=== PATIENT | female | born 1965 | race Caucasian/White ===

== ENCOUNTER 2017-12-10 09:39 | Emergency (ER) | payer OTHER ==
[2017-12-10] MEDS ORDERED: DEXAMETHASONE 10 MG/ML VIAL PO STA (11:41)
--- NOTE | 2017-12-10 11:44 | ED Physician Documentation ---
PD HPI DYSPNEA - Stated complaint Stated Complaint: SOA - Chief complaint Chief Complaint: Resp - History obtained from History obtained from: Patient - History of Present Illness Timing - onset: How many days ago (2) Timing - details: Still present Associated symptoms: Fever, Cough, Other (sore throat) Similar symptoms before: Diagnosis (asthma) - Treatment prior to arrival Treatment prior to arrival: Albuterol inhaler, without relief. - Additional information Additional information: The patient is a 52-year-old female with history of asthma who presents with dyspnea that started 2 days ago and has persisted since that time, despite the use of albuterol inhaler. She reports low-grade fever at night, and reports nonproductive cough. She reports sore throat that started last week, prior to the onset of dyspnea. She has had slight nausea, without vomiting. She denies chest pain. She quit smoking cigarettes in 2009. Review of Systems Constitutional: denies: Fever Nose: denies: Congestion Throat: reports: Sore throat Cardiac: denies: Chest pain / pressure Respiratory: reports: Dyspnea, Cough GI: reports: Nausea. 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 - Present Medications Home Medications: Ambulatory Orders Medication Instructions Recorded Confirmed Cetirizine [ZyrTEC] 10 mg ORAL TID 02/12/14 03/24/15 Estrogens, Conjugated [Premarin] 0.3 mg ORAL DAILY 02/12/14 03/24/15 Fluticasone/Salmeterol 100/50 1 mg INH BID 02/12/14 03/24/15 [Advair 100 Mcg/50 Mcg] Levothyroxine [Synthroid] 112 mcg ORAL DAILY 02/12/14 03/24/15 traMADol [Ultram] 50 mg ORAL TID 02/12/14 03/24/15 Albuterol [Ventolin Hfa] 2 puffs INH Q4H PRN 03/24/15 03/24/15 Azithromycin [Zithromax] 250 mg PO DAILY #6 tablet 03/24/15 Fluticasone/Salmeterol [Advair 1 spray INH BID 03/24/15 03/24/15 100-50 Diskus] Benzonatate [Tessalon Perle] 100 mg PO BID PRN #10 capsule 12/10/17 predniSONE [Prednisone] 30 mg PO DAILY #15 tablet 12/10/17 - Allergies Allergies/Adverse Reactions: Allergies Allergy/AdvReac Type Severity Reaction Status Date / Time acetaminophen [From Percocet] AdvReac Hives Verified 12/10/17 09:54 codeine AdvReac Hives Verified 12/10/17 09:54 hydrocodone bitartrate * AdvReac Hives Verified 12/10/17 09:54 [From Vicodin] oxycodone HCl * AdvReac Hives Verified 12/10/17 09:54 [From Percocet] - Social History Does the pt smoke?: No Smoking Status: Former smoker (Quit in 2009.) Does the pt drink ETOH?: No Does the pt have substance abuse?: No - Immunizations Immunizations are current?: Yes PD ED PE NORMAL - Vitals Vital signs reviewed: Yes (Borderline hypertension.) - General General: Alert and oriented X 3, Well developed/nourished - HEENT HEENT: Atraumatic, Pharynx benign - Neck Neck: No adenopathy, No JVD - Cardiac Cardiac: RRR - Respiratory Respiratory: Other (Without wheezed, rales or rhonchi.) - Abdomen Abdomen: Soft, Non tender - Back Back: No CVA TTP - Derm Derm: No rash - Extremities Extremities: No edema, No calf tenderness / cord - Neuro Neuro: Alert and oriented X 3, No motor deficit, Normal speech Results - Vitals Vitals: Oxygen O2 Source Room air - Labs Labs: Microbiology 12/10/17 10:20 Group A Strep Throat Culture - Final Throat MIXED OROPHARYNGEAL GANGA PRESENT. NO BETA STREP PRESENT IN CULTURE. Laboratory Tests 12/10/17 10:20 Group A Strep Rapid Negative - Rads (name of study) CXR Radiology: Prelim report reviewed, EMP read contemporaneously, See rad report (No acute cardiopulmonary process. Possible COPD.) PD MEDICAL DECISION MAKING - ED course Complexity details: reviewed results, re-evaluated patient, considered differential, d/w patient ED course: The patient's presentation is most consistent with viral bronchitis. Chest x- ray reveals no evidence of pneumonia or congestive heart failure. I doubt pulmonary embolus. Rapid strep screen is negative. Treatment in the emergency department included administration of dexamethasone 10 mg orally. She is being discharged with prescriptions for prednisone and for Tessalon Perles. I discussed with her the expected course of illness, symptomatic treatment and outpatient follow-up, as well as potentially worrisome signs or symptoms that should prompt reevaluation in the emergency department. - Sepsis Event Vital Signs: Oxygen O2 Source Room air Departure - Departure Disposition: Home, Self Care Clinical Impression: Bronchitis Condition: Stable Instructions: ED Bronchitis Asthmatic Follow-Up: PADILLA GOTTI PA-C [Primary Care Provider] - Prescriptions: Benzonatate [Tessalon Perle] 100 mg PO BID PRN #10 capsule PRN Reason: Cough predniSONE [Prednisone] 30 mg PO DAILY #15 tablet Comments: Continue using Tylenol or ibuprofen as needed for fever or discomfort. Take prednisone daily as prescribed. You can use Tessalon as prescribed if needed for cough. Follow-up with your primary physician within 1-2 weeks. Call to schedule appointment. Return to the emergency department if you develop increasing difficulty breathing, or otherwise worsening symptoms. Forms: Activity restrictions Discharge Date/Time: 12/10/17 12:06
[2017-12-10 12:05] VITALS: BP 128/83
--- NOTE | 2017-12-10 12:24 | XRAY Report ---
Reason: cough Procedure Date: 12/10/2017 Accession Number: [id number] / [id number] Procedure: XR - Chest 2 View X-Ray CPT Code: 71722 FULL RESULT: EXAM: CHEST RADIOGRAPHY EXAM DATE: 12/10/2017 10:39 AM. CLINICAL HISTORY: Cough. COMPARISON: CHEST 2 VIEW PA/lateral 03/24/2015 8:21 PM. TECHNIQUE: 2 views. FINDINGS: Lungs/Pleura: Lungs are mildly hyperinflated. No focal opacities. No pneumothorax or effusions. Mediastinum: Heart and mediastinal contours are unremarkable. Other: None. IMPRESSION: 1. No acute pulmonary process. 2. Possible COPD. RADIA
== END 2017-12-10 12:06 | disposition home or self-care (01) ==
LOC: ED 09:39
DX: J40 Bronchitis, not specified as acute or chronic (principal); J44.9 Chronic obstructive pulmonary disease, unspecified; Z87.01 Personal history of pneumonia (recurrent)
CPT/HCPCS: 71046; 87070; 87430; 99282; 99283

== ENCOUNTER 2019-09-19 02:40 | Emergency (ER) | payer OTHER ==
--- NOTE | 2019-09-19 02:58 | ED Physician Documentation ---
PD HPI ABD PAIN - Stated complaint Stated Complaint: ABD PX - Chief complaint Chief Complaint: Abd Pain - History obtained from History obtained from: Patient - History of Present Illness Timing - onset: How many days ago (5) Timing - duration: Days (5) Timing - details: Gradual onset, Still present Quality: Sharp, Pain Location: LUQ, LLQ Radiation: Left flank Improved by: Laying still Worsened by: Moving, Breathing, Position, Palpation Associated symptoms: Nausea. 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 She has had persistence and worsening of the pain over the past 5 days. She has become nauseated she has not had any vomiting and she has not had a fever. She has continued to be able to eat and she has had normal bowel movement and normal urination. Review of Systems Constitutional: denies: Fever Eyes: denies: Decreased vision Ears: denies: Ear pain Nose: denies: Rhinorrhea / runny nose, Congestion Throat: denies: Sore throat Cardiac: denies: Chest pain / pressure Respiratory: denies: Dyspnea, Cough GI: reports: Abdominal Pain, Nausea. 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 - Present Medications Home Medications: Ambulatory Orders Medication Instructions Recorded Confirmed Cetirizine [ZyrTEC] 10 mg ORAL TID 02/12/14 03/24/15 Estrogens, Conjugated [Premarin] 0.3 mg ORAL DAILY 02/12/14 03/24/15 Fluticasone/Salmeterol 100/50 1 mg INH BID 02/12/14 03/24/15 [Advair 100 Mcg/50 Mcg] Levothyroxine [Synthroid] 112 mcg ORAL DAILY 02/12/14 03/24/15 traMADol [Ultram] 50 mg ORAL TID 02/12/14 03/24/15 Albuterol [Ventolin Hfa] 2 puffs INH Q4H PRN 03/24/15 03/24/15 Azithromycin [Zithromax] 250 mg PO DAILY #6 tablet 03/24/15 Fluticasone/Salmeterol [Advair 1 spray INH BID 03/24/15 03/24/15 100-50 Diskus] Benzonatate [Tessalon Perle] 100 mg PO BID PRN #10 capsule 12/10/17 predniSONE [Prednisone] 30 mg PO DAILY #15 tablet 12/10/17 - Allergies Allergies/Adverse Reactions: Allergies Allergy/AdvReac Type Severity Reaction Status Date / Time acetaminophen [From Percocet] AdvReac Hives Verified 12/10/17 09:54 codeine AdvReac Hives Verified 12/10/17 09:54 hydrocodone bitartrate * AdvReac Hives Verified 12/10/17 09:54 [From Vicodin] oxycodone HCl * AdvReac Hives Verified 12/10/17 09:54 [From Percocet] - Social History Does the pt smoke?: No Smoking Status: Never smoker Does the pt drink ETOH?: No Does the pt have substance abuse?: No - Immunizations Immunizations are current?: Yes - POLST Patient has POLST: No PD ED PE NORMAL - Vitals Vital signs reviewed: Yes (normal ) - General General: Alert and oriented X 3, No acute distress, Well developed/nourished - HEENT HEENT: Atraumatic, PERRL, EOMI - Neck Neck: Supple, no meningeal sign, No bony TTP - Cardiac Cardiac: RRR, No murmur - Respiratory Respiratory: No respiratory distress, Other (end inspritory wheeze is present in all pantoja ) - Abdomen Abdomen: Normal bowel sounds, Soft, Non distended, No organomegaly, Other (There is left upper quadrant tenderness and tenderness to bimanual palpation of the left kidney as well as pain to palpation of the left lower quadrant. 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2 Lymph # (Auto) 2.2 Benson # (Auto) 0.6 Eos # (Auto) 1.0 H Baso # (Auto) 0.1 Absolute Nucleated RBC 0.00 Nucleated RBC % 0.0 Sodium 137 Potassium 3.7 Chloride 100 L Carbon Dioxide 29 Anion Gap 8.0 BUN 13 Creatinine 1.0 Estimated GFR (MDRD) 57 L Glucose 103 H Calcium 8.8 Total Bilirubin 0.6 AST 21 ALT 16 Alkaline Phosphatase 67 Total Protein 7.4 Albumin 4.2 Globulin 3.2 Albumin/Globulin Ratio 1.3 Lipase 34 HCG, Quant 1.88 Urine Color Urine Clarity Urine pH Ur Specific [place] Urine Protein Urine Glucose (UA) Urine Ketones Urine Occult Blood Urine Nitrite Urine Bilirubin Urine Urobilinogen Ur Leukocyte Esterase Urine RBC Urine WBC Ur Squamous Epith Cells Urine Bacteria Ur Microscopic Review Urine Culture Comments 09/19/19 03:20 WBC RBC Hgb Hct MCV MCH MCHC RDW Plt Count MPV Neut # (Auto) Lymph # (Auto) Benson # (Auto) Eos # (Auto) Baso # (Auto) Absolute Nucleated RBC Nucleated RBC % Sodium Potassium Chloride Carbon Dioxide Anion Gap BUN Creatinine Estimated GFR (MDRD) Glucose Calcium Total Bilirubin AST ALT Alkaline Phosphatase Total Protein Albumin Globulin Albumin/Globulin Ratio Lipase HCG, Quant Urine Color YELLOW Urine Clarity CLEAR Urine pH 5.5 Ur Specific [place] 1.025 Urine Protein NEGATIVE Urine Glucose (UA) NEGATIVE Urine Ketones NEGATIVE Urine Occult Blood SMALL H Urine Nitrite NEGATIVE Urine Bilirubin NEGATIVE Urine Urobilinogen 0.2 (NORMAL) Ur Leukocyte Esterase NEGATIVE Urine RBC 0-5 Urine WBC 0-3 Ur Squamous Epith Cells FEW Squamous Urine Bacteria None Seen Ur Microscopic Review INDICATED Urine Culture Comments NOT INDICATED - Rads (name of study) CT ab/pel with Radiology: Prelim report reviewed (Impression: Mild to moderate constipation extending from the transverse colon through mid descending colon. Negative for splenomegaly. No signs of recurrent neoplasm.), EMP read indepedently, See rad report PD MEDICAL DECISION MAKING - ED course Complexity details: reviewed old records, reviewed results, re-evaluated patient, considered differential, d/w patient ED course: 54-year-old female with remote history of leukemia has had abdominal pain for the past 5 days worsening and especially up in the left upper quadrant. She has pain and tenderness to palpation. On her CT scan there is excessive stool especially at the splenic flexure. There are no other specific findings in the CT scan and the blood work is unremarkable. She has a normal white blood cell count normal electrolytes and liver functions. There was no evidence of recurrent neoplasm in the abdomen. Here in the emergency department the patient was treated for pain with use of morphine and this did help. When she was confronted with the diagnosis she was relieved and felt that she would be able to handle this at home with enema and laxative and I have encouraged her to use MiraLAX on a regular basis to retrain her colon. She is a daily user of tramadol and this may have been the impetus for the constipation in the first place. Departure - Departure Disposition: 01 Home, Self Care Clinical Impression: Constipation Qualifiers: Constipation type: drug induced constipation Qualified Code(s): K59.03 - Drug induced constipation Instructions: ED Constipation Follow-Up: Anita Langley MD [Primary Care Provider] - Comments: Today there is excessive stool throughout the entire colon and especially in the area where your pain is. My recommendation is to use both a laxative and enema at home today to clear this out. In addition it will be important to retrain her: And the recommendation is to use MiraLAX on a regular basis for at least a month.
[2019-09-19] MEDS ORDERED: SODIUM CHLORIDE 0.9% 1,000 ML IV STA (03:06)
[2019-09-19] MEDS ORDERED: MORPHINE 2 MG/ML CARPUJECT IVP STA ×2 (03:06→04:19)
[2019-09-19] MEDS ORDERED: ONDANSETRON 4 MG/2 ML VIAL IVP STA (03:06)
[2019-09-19 03:10] LABS: BASOPHILS # (AUTO) 0.1 10^3/uL (0.0-0.1); BASOPHILS % (AUTO) 1.1 %; HGB - HEMOGLOBIN 14.3 g/dL (12.0-16.0); LYMPHOCYTES # (AUTO) 2.2 10^3/uL (1.5-3.5); LYMPHOCYTES % (AUTO) 30.9 %; MEAN CORPUSCULAR HEMOGLOBIN 29.6 pg (27.0-31.0); MEAN CORPUSCULAR HGB CONC 31.9 g/dL (32.0-36.0); MEAN CORPUSCULAR VOLUME 92.8 fL (81.0-99.0); MEAN PLATELET VOLUME 10.1 fL (7.9-10.8); MONOCYTES # (AUTO) 0.6 10^3/uL (0.0-1.0); MONOCYTES % (AUTO) 7.9 %; NEUTROPHILS # (AUTO) 3.2 10^3/uL (1.5-6.6); NEUTROPHILS % (AUTO) 45.8 %; PLT - PLATELET COUNT 241 10^3/uL (130-450); RED BLOOD COUNT 4.83 10^6/uL (4.20-5.40)
[2019-09-19] MEDS ORDERED: IOVERSOL 320 100 ML VIAL IVP ONE ×2 (03:12→03:45)
[2019-09-19 03:17] LABS: ALBUMIN 4.2 g/dL (3.2-5.5); ALBUMIN/GLOBULIN RATIO 1.3 (1.0-2.2); BILIRUBIN,TOTAL 0.6 mg/dL (0.2-1.0); CALCIUM 8.8 mg/dL (8.5-10.3); TOTAL PROTEIN 7.4 g/dL (6.7-8.2)
[2019-09-19 03:34] LABS: BILIRUBIN,URINE NEGATIVE (NEGATIVE); GLUCOSE, URINE (UA) NEGATIVE (NEGATIVE); KETONES,URINE (UA) NEGATIVE (NEGATIVE); LEUKOCYTE ESTERASE, URINE NEGATIVE (NEGATIVE); NITRITE,URINE NEGATIVE (NEGATIVE); OCCULT BLOOD,URINE SMALL (NEGATIVE); PH,URINE 5.5 PH (5.0-7.5); PROTEIN,URINE NEGATIVE (NEGATIVE); UROBILINOGEN,URINE 0.2 (NORMAL) E.U./dL (NORMAL)
[2019-09-19 03:36] LABS: CLARITY,URINE CLEAR (CLEAR)
[2019-09-19 03:49] LABS: BACTERIA,URINE None Seen /HPF (None Seen); RBC,URINE 0-5 /HPF (0-5); SQUAMOUS EPITHELIAL CELL,UR FEW Squamous (<= Few)
[2019-09-19 05:40] VITALS: BP 122/74
--- NOTE | 2019-09-19 09:07 | CT Report ---
PROCEDURE: Abdomen/Pelvis W INDICATIONS: L sided abdominal tenderness/pain CONTRAST: IV CONTRAST: Optiray 320 ml: 100 PO CONTRAST: *NO PO CONTRAST TECHNIQUE: After the administration of oral and intravenous contrast, 5 mm thick sections acquired from the diap hragms to the symphysis. 5 mm thick coronal and sagittal reformats were acquired. For radiation dos e reduction, the following was used: automated exposure control, adjustment of mA and/or kV accordin g to patient size. COMPARISON: None. FINDINGS: Image quality: Excellent. ABDOMEN: Lung bases: Lung bases are clear. 1.2 cm pulmonary cyst noted in the left lung base. Heart size is n ormal. Solid organs: Liver and spleen are normal in size and enhancement. Small, subcentimeter hypoattenuat ing lesions noted in the liver likely represent small cysts or hemangiomas. Gallbladder is within nor mal limits Biliary system is non dilated. Pancreas enhances normally. No adrenal nodules. Kidneys demonstrate normal size and enhancement, without hydronephrosis. Small left renal cyst. Peritoneum and bowel: Bowel loops demonstrate normal wall thickness and caliber. Moderate amount of stool noted in the transverse and left colon. No free fluid or air. The appendix is normal. Nodes and vessels: No retroperitoneal or mesenteric adenopathy by size criteria. Aorta and inferior vena cava are normal in size. Scattered atherosclerotic calcifications noted in the abdominal aorta. Miscellaneous: No ventral hernias. PELVIS: Genitourinary: Bladder wall thickness is normal. Uterus is absent. Miscellaneous: No inguinal hernias or adenopathy. Bones: No suspicious bony lesions. No vertebral body compression fractures. Spine degenerative disc disease and facet arthropathy are noted. IMPRESSION: 1. No acute disease process. 2. No free fluid or free air. 3. No dilated loops of bowel. 4. No evidence of splenomegaly or splenic injury. 5. Moderate colonic fecal loading. Please correlate with clinical data. Reviewed by: Liliam Simons MD, PhD on 09/19/2019 9:06 AM PDT Approved by: Liliam Simons MD, PhD on 09/19/2019 9:06 AM PDT Station ID: [id number]
== END 2019-09-19 05:39 | disposition home or self-care (01) ==
LOC: ED 02:40
DX: K59.03 Drug induced constipation (principal)
CPT/HCPCS: 36415; 74177; 80053; 81001; 83690; 84702; 85025; 96374; 96376; 99284; Q9967; 81003; 87086

== ENCOUNTER 2023-06-14 11:38 | Outpatient (CLI) | payer OTHER ==
[2023-06-14 11:55] LABS: BASOPHILS # (AUTO) 0.1 10^3/uL (0.0-0.1); BASOPHILS % (AUTO) 1.2 %; EOSINOPHILS # (AUTO) 0.4 10^3/uL (0.0-0.7); EOSINOPHILS % (AUTO) 4.9 %; HCT - HEMATOCRIT 44.5 % (37.0-47.0); HGB - HEMOGLOBIN 14.4 g/dL (12.0-16.0); LYMPHOCYTES # (AUTO) 1.6 10^3/uL (1.5-3.5); LYMPHOCYTES % (AUTO) 19.9 %; MEAN CORPUSCULAR HEMOGLOBIN 31.4 pg (27.0-31.0); MEAN CORPUSCULAR HGB CONC 32.4 g/dL (32.0-36.0); MEAN CORPUSCULAR VOLUME 97.2 fL (81.0-99.0); MEAN PLATELET VOLUME 9.6 fL (7.9-10.8); MONOCYTES # (AUTO) 0.7 10^3/uL (0.0-1.0); MONOCYTES % (AUTO) 9.1 %; NEUTROPHILS # (AUTO) 5.2 10^3/uL (1.5-6.6); NEUTROPHILS % (AUTO) 64.4 %; PLT - PLATELET COUNT 267 10^3/uL (130-450); RED BLOOD COUNT 4.58 10^6/uL (4.20-5.40); RED CELL DISTRIBUTION WIDTH 13.8 % (12.0-15.0); WHITE BLOOD COUNT 8.1 x10^3/uL (4.8-10.8)
[2023-06-14 12:14] LABS: ALBUMIN 4.1 g/dL (3.2-5.5); ALBUMIN/GLOBULIN RATIO 1.3 (1.0-2.2); ALKALINE PHOSPHATASE 102 IU/L (42-121); ALT ALANINE AMINOTRANSFERASE 12 IU/L (10-60); AST ASPARTATE AMINOTRANSFERASE 23 IU/L (10-42); BILIRUBIN,TOTAL 0.7 mg/dL (0.2-1.0); BUN - BLOOD UREA NITROGEN 13 mg/dL (6-20); CALCIUM 9.7 mg/dL (8.5-10.3); CARBON DIOXIDE - CO2 29 mmol/L (21-32); CHLORIDE 101 mmol/L (101-111); CHOL/HDL RATIO 2.6 (<4.4); CHOLESTEROL 191 mg/dL; GFR - MDRD 57 (>89); GLUCOSE 100 mg/dL (74-104); HDL CHOLESTEROL 73 mg/dL; LDL CHOLESTEROL,CALCULATED 87 mg/dL; LDL/HDL RATIO 1.2 (<4.4); POTASSIUM 3.8 mmol/L (3.5-4.5); SODIUM 136 mmol/L (135-145); TOTAL PROTEIN 7.2 g/dL (6.4-8.9); TRIGLYCERIDES 157 mg/dL (48-352); VLDL CHOLESTEROL 31 mg/dL
[2023-06-14 12:27] LABS: THYROID STIMULATING HORMONE 4.52 uIU/mL (0.34-5.60)
--- NOTE | 2023-06-14 15:48 | XRAY Report ---
PROCEDURE: Ankle 1-2V RT INDICATIONS: RIGHT ANKLE PAIN TECHNIQUE: 2 views of the ankle were acquired. COMPARISON: None. FINDINGS: Bones: No fractures or dislocations. Ankle mortise is normally aligned on nonweightbearing view. N o suspicious bony lesions. Soft tissues: No tibiotalar joint effusion. Achilles tendon appears normal. IMPRESSION: No acute bony abnormality. If there remains a high clinical concern for fracture, consider cross-sect ional imaging now. If pain persists, consider repeat x-ray in 10-14 days or cross-sectional imaging. Reviewed by: Thu Cassidy MD on 06/14/2023 3:47 PM PDT Approved by: Thu Cassidy MD on 06/14/2023 3:47 PM PDT Station ID: [id number]
== END 2023-06-14 11:39 | disposition home or self-care (01) ==
LOC: LAB 11:38 → DI 11:39
PROVIDERS: ATTEND Nurse Practitioner Family
DX: M25.571 Pain in right ankle and joints of right foot (principal); E06.3 Autoimmune thyroiditis; Z13.6 Encounter for screening for cardiovascular disorders; Z80.6 Family history of leukemia; Z82.3 Family history of stroke
CPT/HCPCS: 36415; 80053; 80061; 83721; 84443; 85025

== ENCOUNTER 2023-09-09 08:00 | Outpatient (CLI) | payer OTHER ==
[2023-09-10 12:34] LABS: BILIRUBIN,URINE NEGATIVE (NEGATIVE); GLUCOSE, URINE (UA) NEGATIVE (NEGATIVE); KETONES,URINE (UA) NEGATIVE (NEGATIVE); LEUKOCYTE ESTERASE, URINE NEGATIVE (NEGATIVE); NITRITE,URINE NEGATIVE (NEGATIVE); OCCULT BLOOD,URINE TRACE-INTA (NEGATIVE); PROTEIN,URINE NEGATIVE (NEGATIVE); UROBILINOGEN,URINE 0.2 (NORMAL) E.U./dL (NORMAL)
[2023-09-10 12:48] LABS: AMORPHOUS SEDIMENT,UR Marked /LPF; BACTERIA,URINE Few /HPF (None Seen); CLARITY,URINE CLOUDY (CLEAR); RBC,URINE 0-5 /HPF (0-5); SQUAMOUS EPITHELIAL CELL,UR FEW Squamous (<= Few); WBC,URINE 0-3 /HPF (0-5)
== END 2023-09-09 23:59 | disposition home or self-care (01) ==
LOC: LAB 08:00
PROVIDERS: ATTEND Nurse Practitioner Family
DX: R39.89 Other symptoms and signs involving the genitourinary system (principal); R10.9 Unspecified abdominal pain; R30.0 Dysuria; R35.0 Frequency of micturition
CPT/HCPCS: 81001; 87086